=== PATIENT | male | born 1995 | race Two or more races ===

== ENCOUNTER 2025-01-20 19:11 | Emergency (ER) | payer BC, OTHER ==
[~2025-01-20] VITALS: Ht 182.9 cm; Wt 98.0 kg
[2025-01-20] MEDS ORDERED: IBUP-1456 PO (19:37)
--- NOTE | 2025-01-20 19:39 | ED.PDOC ---
Back pain HPI HPI Comments 29-year-old male presents to ER with complaints of back pain x1 day. Patient reports he started experiencing pain localized to tailbone yesterday evening that started after he "hit a bump" while in an off-road vehicle. Denies falling out of the off-road vehicle and rates his current pain an 8/10 that he states starts in his tailbone and does not radiate. Denies use of medications for current symptoms presents to ER ambulatory on arrival, with steady gait, in no distress. Denies numbness/tingling, abdominal/pelvic pain, extremity weakness, changes in urination/BM or any further symptoms/complaints Chief Complaint: Back Pain Time Seen by MD: 19:13 Primary Care Provider: UNKNOWN Reviewed Notes: Nurses Notes, Medications, Allergies Allergies: Coded Allergies: NO KNOWN ALLERGIES (Unverified , 01/20/25) Home Meds Active Scripts Ibuprofen (Ibuprofen) 800 Mg Tab, 1 TAB PO TID PRN, #30 TAB 0 Refills Prov:ARIE SRINIVASAN 01/20/25 Information Source: Patient Past Medical History PAST MEDICAL HISTORY: Denies Surgical History (Other): Right arm surgery Family History Family History: Unknown Social History Smoker: Non-Smoker Alcohol: Denies ETOH Use Drugs: Denies Drug Use Lives In: Home Constitutional: denies: chills, diaphoresis, fatigue, fever, malaise, sweats, weakness, others EENTM: denies: blurred vision, double vision, ear bleeding, ear discharge, ear drainage, ear pain, ear ringing, eye pain, eye redness, hearing loss, mouth tg n, mouth swelling, nasal discharge, nose bleeding, nose congestion, nose pain, photophobia, tearing, throat pain, throat swelling, voice changes, others Respiratory: denies: cough, hemoptysis, orthopnea, SOB at rest, shortness of breath, SOB with excertion, stridor, wheezing, others Cardiovascular: denies: chest pain, dizzy spells, diaphoresis, Dyspnea on exertion, edema, irregular heart beat, left arm pain, lightheadedness, palpitations, PND, syncope, others Gastrointestinal: denies: abdomen distended, abdominal pain, blood streaked bowels, constipated, diarrhea, dysphagia, difficulty swallowing, hematemesis, melena, nausea, poor appetite, poor fluid intake, rectal bleeding, rectal pain, vomiting, others Genitourinary: denies: burning, dysuria, flank pain, frequency, hematuria, incontinence, penile discharge, penile sore, pain, testicle pain, testicle swelling, urgency, others Neurological: denies: dizziness, fainting, headache, left sided numbness, left sided weakness, numbness, paresthesia, pre-existing deficit, right sided numbness, right sided weakness, seizure, speech problems, tingling, tremors, weakness, others Musculoskeletal: reports: others (As stated in HPI) Integumetry: denies: bruises, change in color, change in hair/nails, dryness, laceration, lesions, lumps, rash, wounds, others Allergic/Immunocompromised: denies: Difficulty Healing, Frequent Infections, Hives, Itching, others Hematologic/Lymphatic: denies: anemia, blood clots, easy bleeding, easy bruising, swollen glands, others Endocrine: denies: excessive hunger, excessive sweating, excessive thirst, excessive urination, flushing, intolerance to cold, intolerance to heat, unexplained weight gain, unexplained weight loss, others Psychiatric: denies: anxiety, bipolar disorder, depression, hopeless, panic disorder, schizophrenia, sleepless, suicidal, others Physical Exam General Appearance: No Apparent Distress HEENT: PERRL/EOMI Neck: Full Range of Motion, Non-Tender, Normal Respiratory: Chest Non-Tender, Lungs Clear, No Accessory Muscle Use, No Respiratory Distress, Normal Breath Sounds Cardiovascular: No Murmur, No Gallop, Regular Rate/Rhythm Breast Exam: Deferred Gastrointestinal: Non Tender, No Pulsatile Mass, Soft Genitalia: Deferred Pelvic: Deferred Rectal: Deferred Extremities: Normal capillary refill, Normal range of motion Musculoskeletal : Extremity Location: Back (Slight TTP centralized to coccyx noted. No other TTP to spine noted. No skin changes appreciated. Gait intact without abnormality) Neurologic: Alert, tool keeper II-XII nml as Tested, No Motor Deficits, Normal Affect, Normal Mood, No Sensory Deficits Cerebellar Function: Normal Reflexes: Normal Skin: Dry, Normal Color, Warm Peripheral Pulses: 2+ dorsalis pedis (R), 2+ dorsalis pedis (L), 2+ Radial (R), 2+ Radial (L), 2+ Brachial (R), 2+ Brachial (L) Lymphatic: No Adenopathy Was a procedure done? Was a procedure done?: No Sedation Sedation?: No Back Pain Differential Dx Differential Diagnosis: Fracture, Urinary Tract Infection, Other (Neurovascular injury) X-Ray, Labs, Meds, VS Vital Signs Date Time Temp Pulse Resp B/P (MAP) Pulse Ox O2 Delivery O2 Flow Rate FiO2 01/20/25 19:30 98.8 61 18 119/53 (75) 96 98.8 PATIENT: ADELFO GREENWOODCCT: [id number]: [id number] : 1995 LOC: ER ROOM / BED: / AGE / SEX: 29 / M ADM STATUS: REG ER SERVICE 28 ORDERING PHYSICIAN: ARIE SRINIVASAN PROCEDURE(s): SACCX - SACRUM AND COCCYX REASON: coccyx pain ORDER NUMBER(s): [id number], ACCESSION NUMBER(s): [id number] CLINICAL INDICATION: coccyx pain TECHNIQUE: 3 radiographic views of the sacrum and coccyx were obtained. Comparison: None FINDINGS/IMPRESSION: There is no evidence of acute fracture or dislocation. The visualized joint space is well maintained. The alignment is anatomical. ATED BY: SOUMYA CARRERA DO DICTATED DATE/TIME: 01/20/252009 SIGNED BY: SOUMYA CARRERA DO SIGNED DATE/TIME: 01/20/252009 CC: Sacrum/coccyx x-ray reviewed Patient neurovascularly intact Advised on rest/ no strenuous activity Advised to follow up with PCP in 1-2 days Patient verbalized understanding and agreeable with current plan of care Advised to return to ER immediately if symptoms worsen Images Reviewed?: Images reviewed and evaluated by me Time of 1ST Reevaluation: 19:30 Reevaluation 1ST: N/A Patient Education/Counseling: Diagnosis, Treatment, Prognosis, Need For Follow Up Family Education/Counseling: No Family Present SEPSIS Sepsis Screen Physician Orders Sacrum And Coccyx (01/20/25 19:29) Vital Signs Date Time Temp Pulse Resp B/P (MAP) Pulse Ox O2 Delivery O2 Flow Rate FiO2 01/20/25 19:30 98.8 61 18 119/53 (75) 96 98.8 Departure 1 Departure Time of Disposition: 20:22 Impression: Primary Impression: Coccyx contusion Qualified Codes: S30.0XXA - Contusion of lower back and pelvis, initial encounter Disposition: HOME / SELF CARE / HOMELESS Condition: Stable e-Prescriptions Ibuprofen (Ibuprofen) 800 Mg Tab 1 TAB PO TID PRN, #30 TAB 0 Refills Prov: ARIE SRINIVASAN 01/20/25 Discharged With: Self Critical Care Note Critical Care Time?: No Stability Stability form required: No Heart Score Heart Score: Heart Score Response (Comments) Value History N/A 0 EKG N/A 0 Age N/A 0 Risk Factors N/A 0 Troponin N/A 0 Total 0 ARIE SRINIVASAN Jan 20, 2025 19:39
--- NOTE | 2025-01-20 20:13 | DVH ---
CLINICAL INDICATION: coccyx pain TECHNIQUE: 3 radiographic views of the sacrum and coccyx were obtained. Comparison: None FINDINGS/IMPRESSION: There is no evidence of acute fracture or dislocation. The visualized joint space is well maintained. The alignment is anatomical.
[2025-01-20 20:50] VITALS: BP 121/60; PULSE 61; RESP 19; TEMP 98; O2SAT 95
== END 2025-01-20 21:02 | disposition home or self-care (01) ==
LOC: ER 19:11
DX: S30.0XXA Contusion of lower back and pelvis, initial encounter (principal); Z98.890 Other specified postprocedural states; Z79.899 Other long term (current) drug therapy; V09.9XXA Pedestrian injured in unspecified transport accident, initial encounter; Y93.89 Activity, other specified; Y92.89 Other specified places as the place of occurrence of the external cause; Y99.8 Other external cause status
CPT/HCPCS: 72220